=== PATIENT | female | born 1995 | race Caucasian/White ===

== ENCOUNTER 2020-11-25 20:08 | Emergency (ER) | payer BC | END 2020-11-25 20:28 | disposition left against medical advice (07) | LOC: ER1 20:08 | DX: R51.9 Headache, unspecified (principal); Z53.21 Procedure and treatment not carried out due to patient leaving prior to being seen by health care provider ==

== ENCOUNTER 2022-02-16 05:10 | Emergency (ER) | payer BC ==
[2022-02-16 06:02] LABS: HEMOGLOBIN 12.4 gm/dl (12.3-15.3); RED BLOOD COUNT 4.32 M/UL (4.00-5.10); WHITE BLOOD COUNT 7.6 K/UL (4.5-11.0)
[2022-02-16 06:19] LABS: BUN/CREATININE RATIO 14 (0-10)
[2022-02-16] MEDS ORDERED: PYRIDIUM200 MG PO (06:41)
[2022-02-16] MEDS ORDERED: MACROBID 100 M100 M1 PO (06:41)
== END 2022-02-16 06:50 | disposition home or self-care (01) ==
LOC: ER1 05:10
PROVIDERS: Family Medicine
DX: N39.0 Urinary tract infection, site not specified (principal); Z88.1 Allergy status to other antibiotic agents
CPT/HCPCS: 80053; 81001; 83690; 84703; 85025; 87077; 87086; 87186; 96374; 99284; J1885